=== PATIENT | female | born 1965 | race Caucasian/White ===

== ENCOUNTER 2017-08-16 09:42 | Emergency (ER) | payer OTHER ==
[2017-08-16] MEDS ORDERED: NS 1,000 ML IV ONE ×2 (10:19→13:21)
[2017-08-16] MEDS ORDERED: ONDANSETRON 4 MG/2 ML VIAL ONE (10:33)
[2017-08-16] MEDS ORDERED: HYDROmorphONE/DILAUDID 1 MG/ML INJ ONE ×2 (10:34→13:24)
[2017-08-16] MEDS ORDERED: ONDANSETRON 4 MG/2 ML VIAL IVP ONE ×2 (10:38→13:22)
[2017-08-16] MEDS ORDERED: HYDROmorphONE/DILAUDID 1 MG/ML INJ IVP ONE ×2 (10:38→13:26)
[2017-08-16 10:40] LABS: % IMMATURE GRANULYOCYTES 0.3 % (0.0-1.1); ABSOLUTE IMMATURE GRANULOCYTES 0.03 10^3/uL (0.00-0.10); ADD DIFF? NO; ADD MORPH? NO; ADD SCAN? NO; ATYPICAL LYMPHOCYTE FLAG 0 (0-99); FRAGMENT RBC FLAG 0 (0-99); HEMATOCRIT 42.3 % (38.0-47.0); HEMOGLOBIN 15.3 g/dL (12.6-16.3); LEFT SHIFT FLG 0 (0-99); LIPEMIA HEMOLYSIS FLAG 90 (0-99); MEAN CELL HEMOGLOBIN 30.2 pg (27.9-34.1); MEAN CELL HEMOGLOBIN CONCENTR. 36.2 g/dL (32.4-36.7); MEAN CELL VOLUME 83.6 fL (81.5-99.8); MEAN PLATELET VOLUME 10.6 fL (8.7-11.7); PLATELET CLUMPS FLAG 10 (0-99); PLATELET COUNT 165 10^3/uL (150-400); RED BLOOD CELL COUNT 5.06 10^6/uL (4.18-5.33); RED CELL DISTRIBUTION WIDTH 12.7 % (11.5-15.2)
--- NOTE | 2017-08-16 10:40 | EDPHY ---
H & P Smoking Status: Never smoked Time Seen by Provider: 08/16/17 09:55 HPI/ROS: CHIEF COMPLAINT: Headache, vomiting, diarrhea, diffuse arthralgias HISTORY OF PRESENT ILLNESS: 52-year-old female presents to the emergency department by private vehicle with her complaining of severe headache, vomiting, diarrhea and diffuse arthralgias that began yesterday. She states that her in her were in the [place] for 2 weeks and just returned on Wednesday. She was doing well until Wednesday she started feeling achy and having some mild upset stomach. She states the following day weight on Wednesday she developed fevers, chills, headache, multiple episodes of watery diarrhea. No obvious bloody stools. No melena. She took the recommended injectable typhoid, hepatitis-A, hepatitis B vaccines. She did not do any malaria prophylaxis as she did not think that this was warranted. Her had similar symptoms last week as well which he took Cipro 5 mg twice a day for. He has been taking this as prescribed for the last 3 days and states that his symptoms have now nearly completely resolved. The patient did get some mosquito bites while she was in the [place]. She states that all of her joints including her neck feels very stiff. No rash. No chest pain or difficulty breathing. She describes diffuse especially epigastric abdominal pain. REVIEW OF SYSTEMS: Constitutional: Chills. Eyes: No double or blurry vision. ENT: No sore throat. Respiratory: No cough, no shortness of breath. Cardiac: No chest pain. Gastrointestinal: Abdominal pain, vomiting, diarrhea Genitourinary: No dysuria. Musculoskeletal: As above Skin: No rashes. Neurological: Severe headache. (Sylvie Greene) Past Medical/Surgical History: Multiple kidney stones, hysterectomy, right shoulder surgery, pelvic sling ( Sylvie Greene) Social History: (Sylvie Greene) Physical Exam: General Appearance: Alert, moderate distress. Temperature 37.0degrees, heart rate 94, respirations 20, blood pressure 95/73, 99% on room air. Eyes: Pupils equal and round. Extraocular motions are all intact. ENT: Mouth: Mucous membranes dry appearing. Respiratory: No wheezing, rhonchi, or rales, lungs are clear to auscultation. Cardiovascular: Regular rate and rhythm. Gastrointestinal: Abdomen is soft and nontender, no masses, no rebound or guarding, bowel sounds normal. Neurological: Alert and oriented x 3, cranial nerves II through XII grossly intact Skin: Warm and dry, no rashes. Musculoskeletal: Nontender to palpate along the cervical, thoracic or lumbar spine. Pain with flexion of her neck.. Extremities: Full range of motion and no peripheral edema. Psychiatric: Patient is oriented X 3, there is no agitation. (Sylvie Greene) Constitutional: Initial Vital Signs Temperature (C) 37.0 C 08/16/17 09:44 Heart Rate 94 08/16/17 09:44 Respiratory Rate 20 08/16/17 09:44 Blood Pressure 95/73 L 08/16/17 09:44 O2 Sat (%) 99 08/16/17 09:44 O2 Delivery Mode Room Air O2 (L/minute) 2 Allergies/Adverse Reactions: acetaminophen [From Percocet] Allergy (Verified 08/16/17 09:51) codeine Allergy (Verified 08/16/17 09:51) oxycodone [From Percocet] Allergy (Verified 08/16/17 09:51) ivp dye Allergy (Uncoded 06/25/14 20:51) Home Medications: Medication Instructions Recorded HCTZ (*) 08/16/17 Ondansetron Odt [Zofran Odt] 4 mg PO Q4PRN #8 tab 08/16/17 Wellbutrin 100mg (*) 08/16/17 Medical Decision Making Procedures: Procedure: Lumbar puncture. Indication: Headache, fever After verbal informed consent from patient explaining the risks including infection, bleeding, and neurologic damage, a lumbar puncture was performed after the patient was prepped and draped in the usual fashion. The back was anesthetized with 1% lidocaine. Approximately 4 cc of clear fluid was obtained. Opening pressure was not obtained. There were no complications. The procedure was performed by myself. (Angel Gonzalez) ED Course/Re-evaluation: 52-year-old female presents after foreign travel now with myalgias, arthralgias , vomiting and diarrhea. She had an IV established and was initially given fentanyl and IV fluids. She was feeling better. She was unable to provide stool specimen in the emergency department will was sent home with stool collection kit. She had a lumbar puncture performed by Dr. Gonzalez. Laboratory studies are otherwise unremarkable. I spoke with Dr. Karan De La Rosa, infectious disease doctor on-call, who did not feel that any other intervention was necessary. He would follow up with her as an outpatient in 2 or 3 days if she was not feeling better. The patient is comfortable being discharged home. (Sylvie Greene) Differential Diagnosis: Including but not limited to meningitis, Zika virus, dengue fever, gastroenteritis, sepsis, infectious diarrhea, malaria (Sylvie Greene) - Data Points Laboratory Results: Laboratory Results 08/16/17 10:25 08/16/17 10:25 Microbiology Results: MICROBIOLOGY 08/16/17 12:20 Cerebral Spinal Fluid Gram Stain - Final 08/16/17 12:20 Cerebral Spinal Fluid CSF Culture - Preliminary Medications Given: Discontinued Medications Hydromorphone HCl (Dilaudid) 0.5 mg IVP EDNOW ONE Stop: 08/16/17 10:39 Last Admin: 08/16/17 10:39 Dose: 0.5 mg Hydromorphone HCl (Dilaudid) 0.5 mg IVP EDNOW ONE Stop: 08/16/17 13:27 Last Admin: 08/16/17 13:27 Dose: 0.5 mg Sodium Chloride (Ns) 1,000 mls @ 0 mls/hr IV EDNOW ONE; Wide Open PRN Reason: Protocol Stop: 08/16/17 10:20 Last Admin: 08/16/17 10:39 Dose: 1,000 mls Sodium Chloride (Ns) 1,000 mls @ 0 mls/hr IV ONCE ONE PRN Reason: Wide Open Stop: 08/16/17 13:22 Last Admin: 08/16/17 13:27 Dose: 1,000 mls Midazolam HCl (Versed) 2 mg IVP EDNOW ONE Stop: 08/16/17 12:06 Last Admin: 08/16/17 12:22 Dose: 2 mg Ondansetron HCl (Zofran) 4 mg IVP EDNOW ONE Stop: 08/16/17 10:39 Last Admin: 08/16/17 10:39 Dose: 4 mg Ondansetron HCl (Zofran) 4 mg IVP EDNOW ONE Stop: 08/16/17 13:23 Last Admin: 08/16/17 13:25 Dose: 4 mg Departure - Departure Disposition: Home, Routine, Self-Care Clinical Impression: Gastroenteritis Condition: Fair Instructions: Gastroenteritis (ED) Additional Instructions: Clear liquids and then slowly advance diet as tolerated. Adult Pain & Fever Control: We recommend Acetaminophen (Tylenol) and Ibuprofen (Motrin,Advil) for pain and fever control. When fever is high or pain severe, both drugs can be used at the same time, but at different intervals. Please note the time differences. Your dose is: Acetaminophen 1000mg every 4 to 6 hours Ibuprofen 600mg every 8 hours with food Note: do not take Acetaminophen with Hydrocodone (Vicodin, Lortab) or Oycodone (Percocet). These medications also contain Acetaminophen. No more than 3000mg of Acetaminophen should be taken in 24 hours (for an adult). Referrals: Kady Cabrera MD [Primary Care Provider] - 1-2 days without fail Karan De La Rosa MD [Medical Doctor] - 2-3 days, if not improved (Infectious disease provider section beamer) Prescriptions: Ondansetron Odt [Zofran Odt] 4 mg PO Q4PRN #8 tab
[2017-08-16 10:58] LABS: ALANINE AMINOTRANSFERASE 48 IU/L (9-52); ALBUMIN 4.1 g/dL (3.5-5.0); ALKALINE PHOSPHATASE 72 IU/L (38-126); ANION GAP 11 mEq/L (8-16); ASPARTATE AMINOTRANSFERASE 23 IU/L (14-46); BILIRUBIN,TOTAL 0.5 mg/dL (0.1-1.4); BILIRUBIN-UNCONJUGATED 0.5 mg/dL (0.0-1.1); CALCIUM 9.2 mg/dL (8.5-10.4); CARBON DIOXIDE 22 mEq/l (22-31); CHLORIDE 105 mEq/L (97-110); CREATININE 0.9 mg/dL (0.6-1.0); GLOMERULAR FILTRATION RATE > 60; GLUCOSE 93 mg/dL (70-100); POTASSIUM 3.8 mEq/L (3.5-5.2); SODIUM 138 mEq/L (134-144); TOTAL PROTEIN 6.5 g/dL (6.3-8.2)
[2017-08-16 11:00] LABS: INR 1.01 (0.83-1.16); PROTIME(PATIENT) 13.2 SEC (12.0-15.0)
[2017-08-16 11:01] LABS: APTT 24.6 SEC (23.0-38.0)
[2017-08-16] MEDS ORDERED: MIDAZOLAM 2 MG/2 ML VIAL IVP ONE (12:05)
[2017-08-16 12:26] VITALS: RESP 18
[2017-08-16 12:54] LABS: PROTEIN, CSF 36 mg/dL (12-60)
[2017-08-16 13:07] LABS: CSF APPEARANCE CLEAR (CLEAR); CSF COLOR COLORLESS (COLORLESS); WBC, CSF 0 /mm3 (0-5)
[2017-08-16 13:23] LABS: MALARIAL PREP NONE SEEN (NONE SEEN)
[2017-08-16 14:43] LABS: COLOR YELLOW; LEUKOCYTE ESTERASE,URINE NEGATIVE (NEGATIVE); NITRITE,URINE NEGATIVE (NEGATIVE)
[2017-08-16 14:45] LABS: MUCUS 1+ /lpf (NONE-1+)
[2017-08-16 15:05] VITALS: BP 111/81; PULSE 98; TEMP 99.3; O2SAT 95
== END 2017-08-16 15:12 | disposition home or self-care (01) ==
PROC: 009U3ZX Drainage of Spinal Canal, Percutaneous Approach, Diagnostic (ICD-10-PCS; principal; 2017-08-16)
DX: K52.9 Noninfective gastroenteritis and colitis, unspecified (principal); E86.9 Volume depletion, unspecified; Z90.710 Acquired absence of both cervix and uterus
CPT/HCPCS: 96374; J1170; J2250; J2405